=== PATIENT | female | born 1950 | race Caucasian/White ===

== ENCOUNTER → 2024-12-13 | Outpatient (CLI) | payer OTHER | LOC: M EKG 12:57 | PROVIDERS: ATTEND Physician Assistant | DX: I47.10 Supraventricular tachycardia, unspecified (principal) ==

== ENCOUNTER → 2025-02-04 | Outpatient (CLI) | payer OTHER | LOC: M CARPUL 16:10 → EDUNIT# 16:30 | PROVIDERS: ATTEND Internal Medicine Cardiovascular Disease | DX: R94.31 Abnormal electrocardiogram [ECG] [EKG] (principal); I11.9 Hypertensive heart disease without heart failure ==